=== PATIENT | female | born 1985 | race Caucasian/White ===

== ENCOUNTER 2018-03-14 11:19 | Inpatient (IN) ==
[2018-03-14] MEDS ORDERED: SALINE FLUSH 10ml SYRINGE IV PRN (16:00)
[2018-03-14] MEDS ORDERED: DINOPROSTONE 10 MG VAGINAL INSERT VG ONE (16:00)
[2018-03-14] MEDS ORDERED: TERBUTALINE 1 MG/ML VIAL SQ PRN (16:00)
[2018-03-14] MEDS ORDERED: CARBOPROST 250 MCG/ML INJECTION IM PRN (16:01)
[2018-03-14] MEDS ORDERED: CALCIUM CARBONATE Chewable 500mg TABLET PO PRN (16:01)
[2018-03-14] MEDS ORDERED: MAG-AL + SIM ORAL LIQUID 30ml PO PRN (16:01)
[2018-03-14] MEDS ORDERED: METHYLERGONOVINE 0.2 MG/ML INJECTION IM PRN (16:01)
[2018-03-14] MEDS ORDERED: ACETAMINOPHEN 500 MG TABLET PO PRN (16:01)
[2018-03-14] MEDS ORDERED: ZOLPIDEM 5 MG TABLET PO PRN (17:56)
[2018-03-15 00:02] VITALS: BMI 55.7
[2018-03-15] MEDS ORDERED: OXYTOCIN DRIP 30 UNIT/500 ML ML IV PRN (04:41)
[2018-03-15] MEDS: LR 1,000 ML IV PRN ×4 (05:00→17:32)
[2018-03-15] MEDS: D5LR 1,000 ML IV PRN ×2 (05:00→15:06)
[2018-03-15] MEDS ORDERED: AMPICILLIN 2 GM in NS 100 ML IV ONE (05:15)
[2018-03-15] MEDS: AMPICILLIN 1 GM in NS 100 ML IV SCH ×4 (09:45→20:35)
--- NOTE | 2018-03-15 10:17 | Anesthesia Preoperative Report ---
Anesthesia Epidural/Spinal Rec - Date and Time Date: 03/15/18 Preoperative Diagnosis: term induction Procedure: Labor Epidural Plan: Epidural - Vital Signs /Para: P:0 - Medictaions & Allergies Inpatient Medications: Current Medications Acetaminophen (Tylenol) 500 - 1,000 mg PO Q4H PRN PRN Reason: Pain Al Hydroxide/Mg Hydroxide (Maalox Plus) 30 ml PO Q3H PRN PRN Reason: Indigestion Calcium Carbonate (Tums) 500 - 1,000 mg PO Q2H PRN PRN Reason: Indigestion Carboprost Tromethamine (Hemabate) 250 mcg IM O PRN PRN Reason: .Downtime Diphenhydramine HCl (Benadryl) 50 mg PO HS PRN PRN Reason: Sleep Last Admin: 03/14/18 21:30 Dose: 50 mg Lactated Ringer's (Lactated Ringers) 1,000 mls @ 999 mls/hr IV .Q1H1M PRN Last Admin: 03/15/18 06:38 Dose: 999 mls/hr Dextrose/Lactated Ringer's (Dextrose 5%-Lactated Ringers) 1,000 mls @ 125 mls/ hr IV .Q8H PRN PRN Reason: Labor Last Admin: 03/15/18 05:00 Dose: 125 mls/hr Oxytocin (Pitocin Drip) 30 unit in 500 mls @ 2 mls/hr IV .Q24H PRN; Protocol PRN Reason: Induction/Augmentation Last Admin: 03/15/18 05:00 Dose: 2 mls/hr Ampicillin Sodium 1 gm/ Sodium (Chloride) 100 mls @ 200 mls/hr IV Q4H [facility] Methylergonovine Maleate (Methergine) 0.2 mg IM O PRN Misoprostol (Cytotec) 800 mcg UT ONCE PRN Sodium Chloride (Iv Flush) 10 - 80 ml IV PRN PRN PRN Reason: Flushing Last Admin: 03/14/18 21:29 Dose: 10 ml Terbutaline Sulfate (Brethine) 0.25 mg SQ PRN PRN Zolpidem Tartrate (Ambien) 5 mg PO HS PRN PRN Reason: Insomnia Last Admin: 03/14/18 23:44 Dose: 5 mg Allergies/Adverse Reactions: Allergies Allergy/AdvReac Type Severity Reaction Status Date / Time vancomycin Allergy Intermediate Rash Verified 03/14/18 17:41 morphine Allergy Mild ITCHING Verified 03/14/18 17:41 - Home Medications Home Medications: Home Medications Medication Instructions Recorded Confirmed Type Vitamins 1 tab PO DAILY 03/04/18 03/14/18 History Tylenol PRN 03/04/18 History - Medical History Respiratory: DENIES: Asthma, Bronchitis, Chronic Obstructive Pulmonary Disease (COPD), Dyspnea, Orthopnea, Pulmonary Embolism, Pneumonia, Upper Respiratory Infection, Pulmonary Edema, Sleep Apnea, Tuberculosis, Other Cardiovascular: DENIES: Abnormal EKG, Angina, Arrhythmia, Congestive Heart Failure, Coronary Artery Disease, Heart Murmur, Hypertension, Hypotension, High Cholesterol, Myocardial Infarction, Rheumatic Fever, Valvular Heart Disease, Other Gastrointestional: Reports: Morbid Obesity DENIES: Obstructive Bowel, Hepatitis, Cirrhosis, Nausea or Vomiting Present, Gastroesophageal Reflux Disease, Gastrointestinal Bleeding, Hiatal Hernia, Ulcer , Other Neuro/Musculoskeletal: Denies: Back Problems, Cerebrovascular Accident, Depression, Headaches, Loss of Consciousness, Muscle Weakness, Neuromuscular Disorder, Paralysis, Paresthesia, Syncope, Seizures, Other Other History: Reports: Now Comment Only: Anesthesia Reactions (trouble waking up) - Surgical History GI Surgery/Treatments: Reports: Cholecystectomy Musculoskeletal Surgery/Tx: Reports: Other (ankle surgery 2013) Reproductive Surgery/Treatment: DENIES: Section Anesthesia Reactions: None Hx Family Anesthesia Reaction: No History of Motion Sickness: No - Social History Smoking Status: Former smoker Second Hand Exposure: No Substance Use Type: does not use Alcohol Intake: former Alcohol Intake Frequency: does not drink - Pertinent Findings Lab Data: CBC and BMP 03/14/18 17:03 - Physical Exam Respiratory Exam: lungs clear, bilateral breath sounds equal Cardiovascular Exam: regular rate and rhythm, no murmur - Airway Assessment Mallampati Score: II TMD: 3 Fingerbreadths Neck Extension: good Overall Assessment: may be difficult mask vent, may be difficult intubation - ASA ASA Score: 3 - Discussion Discussion: Discussed risks/options/alternatives of anesthesia and questions answered. Patient consents. Nursing pain assessment noted. Anesthesia Discussion: family member Attestation Statement: Prior to the delivery of any anesthetic medication, I examined the patient, developed the plan, obtained the patient's consent and discussed the risk and benefits of the procedure with the patient/guardian.
[2018-03-15] MEDS ORDERED: ONDANSETRON 4 MG/2 ML INJECTION IVP PRN (10:18)
[2018-03-15] MEDS ORDERED: ROPIVACAINE 1% 10MG/ML INJ 200 MG, SUFentanil 50 MCG in NS 100 ML EPI PRN (10:18)
[2018-03-15] MEDS ORDERED: DiphenhydrAMINE 50 MG/ML INJECTION IVP PRN (10:18)
[2018-03-15] MEDS ORDERED: NALOXONE 0.4 MG/ML INJECTION IVP PRN (10:18)
[2018-03-15] MEDS ORDERED: CITRIC ACID/SODIUM CITRATE 30ml PO ONE (16:03)
[2018-03-15] MEDS ORDERED: FAMOTIDINE PB 20 MG/50 ML BAG IV ONE (16:03)
[2018-03-15] MEDS ORDERED: CEFAZOLIN PREMIX (MC ONLY) 2 GM/50 ML BAG IV ONE (16:03)
[2018-03-15] MEDS ORDERED: CEFAZOLIN 1 G INJECTION IVP ONE (16:03)
[2018-03-15] MEDS ORDERED: NOZIN NASAL SWAB NAS ONE (16:15)
[2018-03-15] MEDS ORDERED: PHENYLEPHRINE INJ 10 MG/ML VIAL IV ONE (16:50)
[2018-03-15] MEDS ORDERED: LIDOCAINE 2%/EPI 1:200,000 20ml SDV PF ONE (16:50)
[2018-03-15] MEDS ORDERED: SALINE FLUSH 10ml SYRINGE ONE (16:50)
[2018-03-15] MEDS ORDERED: AZITHROMYCIN IV 500 MG in NS 250ml 250 ML IV SCH (17:00)
[2018-03-15] MEDS: OXYTOCIN BOLUS BAG 30 UNIT/500 ML ML IV SCH ×2 (17:11→17:32)
[2018-03-15] MEDS ORDERED: TRANEXAMIC ACID 1,000 MG in NS 100 ML IV ONE (17:15)
[2018-03-15] MEDS ORDERED: MORPHINE SULFATE PF 5mg/10ml INJ (Duramorph) ONE (17:23)
[2018-03-15] MEDS ORDERED: AZITHROMYCIN IV 500 MG in NS 250ml 250 ML IV ONE (17:30)
[2018-03-15] MEDS ORDERED: D5LR 1,000 ML IV SCH (18:27)
[2018-03-15] MEDS ORDERED: HYDROCORTISONE 2.5% CREAM 30gm RECTALLY PRN (18:27)
[2018-03-15] MEDS ORDERED: METOCLOPRAMIDE 10mg/2ml INJECTION IVP PRN (18:27)
[2018-03-15] MEDS ORDERED: CALCIUM CARBONATE Chewable 500mg TABLET PO PRN (18:27)
[2018-03-15] MEDS ORDERED: ACETAMINOPHEN 500 MG TABLET PO PRN (18:27)
[2018-03-15] MEDS ORDERED: OXYTOCIN DRIP 30 UNIT/500 ML ML IV SCH (18:27)
[2018-03-15] MEDS ORDERED: SIMETHICONE 80 MG CHEWABLE TABLET PO PRN (18:27)
[2018-03-15] MEDS: HYDROCODONE/APAP 5mg/325mg TABLET PO PRN (19:36)
[2018-03-15] MEDS: IBUPROFEN 800 MG TABLET PO PRN (19:37)
[2018-03-15] MEDS: SIMETHICONE 80 MG CHEWABLE TABLET PO SCH ×3 (20:32→22:18)
[2018-03-15] MEDS: DiphenhydrAMINE 25 MG CAPSULE PO PRN (22:18)
[2018-03-16] MEDS: HYDROCODONE/APAP 5mg/325mg TABLET PO PRN ×3 (02:18→22:17)
[2018-03-16] MEDS: AMOX/CLAV 500 MG/125 MG TABLET PO SCH ×3 (02:18→19:17)
[2018-03-16] MEDS: IBUPROFEN 800 MG TABLET PO PRN ×2 (06:26→14:21)
[2018-03-16] MEDS: DiphenhydrAMINE 25 MG CAPSULE PO PRN (06:26)
[2018-03-16] MEDS: SIMETHICONE 80 MG CHEWABLE TABLET PO SCH ×4 (09:08→22:17)
[2018-03-16] MEDS: DOCUSATE CALCIUM 240 MG CAPSULE PO SCH (09:08)
[2018-03-16] MEDS: MetroNIDAZOLE 250 MG TABLET PO SCH ×3 (09:09→18:52)
--- NOTE | 2018-03-16 10:17 | OB/GYN Progress Note ---
OB-PP Progress Note - General POD:: POD1 Maternal Group B Strep: Positive Maternal blood type: O+ Maternal Rubella Status: Immune - Subjective Date: 03/16/18 Lochia: Minimal Pain: controlled Voiding: voiding Nausea or Vomiting Present: No - Objective Vital Signs: Last Vital Signs Temp 98.2 F 03/16/18 02:09 Pulse 89 03/16/18 06:25 Resp 18 03/16/18 06:25 BP 122/74 03/16/18 06:25 Pulse Ox 95 03/16/18 06:25 Urine Output: good General: alert and oriented Abdomen: fundus firm, non-tender Incision: dry, dressed Extremities: non-tender Laboratory: Laboratory Results - last 24 hr 03/16/18 07:25 WBC 13.9 H RBC 3.75 L Hgb 11.5 L Hct 35.2 L MCV 93.9 MCH 30.7 MCHC 32.7 RDW Std Deviation 46.3 Plt Count 213 MPV 11.0 Immature Gran % (Auto) 0.4 Neut % (Auto) 73.1 H Lymph % (Auto) 14.4 L Giles % (Auto) 10.9 H Eos % (Auto) 0.9 Baso % (Auto) 0.3 Neut # (Auto) 10.2 H Lymph # (Auto) 2.0 Giles # (Auto) 1.5 H Eos # (Auto) 0.1 Baso # (Auto) 0.0 Abs Immat Gran (auto) 0.06 H - Assessment Assessment: SP, Primary C/S - Plan Plan: routine care
--- NOTE | 2018-03-16 12:40 | Anesthesia Postoperative Note ---
- Date and Time Date: 03/16/18 Time: 12:04 - Status Patient Participated in Evaluation: Patient Participated in Person Vital Signs: Temperature 98.2 F 03/16/18 02:09 Pulse Rate 89 03/16/18 06:25 Respiratory Rate 18 03/16/18 06:25 Blood Pressure 122/74 03/16/18 06:25 Pulse Oximetry 95 03/16/18 06:25 Respiratory Function: Airway Patent Mental Status: Alert and Oriented Pain Intensity: 0 Hydration: Taking PO Fluids Complications During Recover: None Apparent - Follow-Up Instructions Instructions: Per Surgeon
[2018-03-16 15:54] VITALS: O2SAT 98
--- NOTE | 2018-03-16 18:54 | Operative Note ---
DATE OF OPERATION 03/15/2018 PREOPERATIVE DIAGNOSES 1. 32-year-old 1 at 38 weeks 5 days gestational age. 2. Chronic hypertension. 3. Arrest of descent. 4. BMI 54. POSTOPERATIVE DIAGNOSES 1. 32-year-old 1 at 38 weeks 5 days gestational age. 2. Chronic hypertension. 3. Arrest of descent. 4. BMI 54. PROCEDURE Primary low transverse section SURGEON Louisa Tavera MD [employer]PERVIS[employer] Leanna Quiñones MD ANESTHESIA Epidural by Raul Valencia CRNA COMPLICATIONS None EBL 800 mL FINDINGS Viable male , cephalic LOT position, clear fluids, Apgars 8/9, weight 3308 grams. Name "Jones". Normal-appearing uterus, tubes and ovaries. INDICATIONS Citlaly was brought in the evening of 03/14/2018 for Cervidil cervical ripening due to chronic hypertension. The next morning her cervix was soft enough that I was able to place a Kay bulb for further cervical ripening. She was also started on Pitocin. A few hours later the catheter was expelled. She received an epidural. Her membranes were ruptured artificially returning clear fluids. An IUPC was placed to document adequate contractions. Over the course of the day she never changed past 3.5 cm and -2 station, so she was consented for a C- section. DESCRIPTION OF PROCEDURE The patient was taken to the operating room where her epidural was brought up to adequate surgical levels. She already had a Kay catheter in place. She was prepared and draped in the normal sterile fashion. A transverse skin incision was made above the fold of her pannus and carried down to the fascia. The fascia was incised in the midline and extended laterally with the Young scissors. The fascia was elevated and the underlying rectus muscles were dissected off. The peritoneum was entered bluntly and extended superiorly and inferiorly with good visualization of the bladder. The bladder blade was inserted. A bladder flap was created sharply and the bladder blade was reinserted. The lower uterine segment was incised in a transverse fashion layer by layer with a scalpel and bluntly extended. The 's head was floating in the pelvis and was delivered atraumatically. The nose and mouth were suctioned. The cord was clamped and cut. The was handed to Dr. Veloz who was asked to attend due to the unscheduled surgery and chronic hypertension. The placenta delivered spontaneously. The uterus was exteriorized and cleared of all clots and debris. The uterine incision was closed with running locked 0 Monocryl. A small hematoma developed below the incision. The incision was imbricated with a second layer of 0 Monocryl and hematoma did not appear to be expanding. Hemostasis was obtained on the serosal edges with the cautery. The uterus was returned to the abdomen. The gutters were cleared of all clots and debris. The incision was inspected one final time and still noted to be hemostatic. The peritoneum was closed with running 2-0 Vicryl. Hemostasis was obtained in the rectus muscles with the cautery. The fascia was closed with 0 Vicryl. Hemostasis was obtained in the subcutaneous tissue. Due to the thickness of this layer, it was closed in two layers of running 2-0 chromic. The skin was closed with 4-0 Vicryl in a subcuticular manner. The PREVENA wound VAC was then placed. Sponge, sharp and instrument counts were correct. The patient tolerated the procedure well and was taken to the recovery room in good condition. FAHAD
[2018-03-17] MEDS: AMOX/CLAV 500 MG/125 MG TABLET PO SCH ×2 (01:14→09:24)
[2018-03-17] MEDS: HYDROCODONE/APAP 5mg/325mg TABLET PO PRN ×2 (05:04→12:03)
[2018-03-17] MEDS: IBUPROFEN 800 MG TABLET PO PRN ×2 (05:05→12:59)
[2018-03-17] MEDS: MetroNIDAZOLE 250 MG TABLET PO SCH (09:24)
[2018-03-17] MEDS: DOCUSATE CALCIUM 240 MG CAPSULE PO SCH (09:24)
[2018-03-17] MEDS: SIMETHICONE 80 MG CHEWABLE TABLET PO SCH (09:25)
[2018-03-17 14:36] VITALS: BP 130/76; PULSE 79; RESP 20; TEMP 98.2
== END 2018-03-17 14:35 | disposition home or self-care (01) | DRG 765 ==
LOC: MC 15:55
PROVIDERS: ADMIT Obstetrics & Gynecology; ATTEND Obstetrics & Gynecology